=== PATIENT | male | born 1960 | race Caucasian/White ===

== ENCOUNTER → 2021-03-03 | Outpatient (CLI) | payer OTHER ==
--- NOTE | 2021-03-03 10:33 | RAD ---
EXAM: Left shoulder, 3 views; right foot, 2 views. HISTORY: Pain. Disability determination. COMPARISON: None. FINDINGS: Left shoulder: 3 views of the left shoulder obtained. There is severe glenohumeral joint space narrow ing with degenerative subchondral sclerosis, subchondral cyst formation, inferior marginal humeral he ad spurring and glenoid bony remodeling. The acromial clavicular joint is intact. Right foot: 2 views of the left foot are obtained. There is complete to near complete loss of the fir st metatarsal phalangeal joint with associated subchondral sclerosis, spurring and flattening of the articular aspect of the first metatarsal head and base of the first proximal phalanx. There is also s light flattening of the articular aspect of the second metatarsal head. There is a tiny plantar spur. IMPRESSION: 1. Severe left glenohumeral osteoarthritis with associated glenoid bony remodeling. 2. 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 3. Slight flattening of the right second metatarsal head. This may be projectional. There is no evide nce of sclerosis in this location. However, the possibility of cortical collapse due to osteonecrosis is not excluded. Electronically signed by: Ceci Diaz MD (03/03/2021 10:31 AM) [facility]
== END ==
LOC: RAD 09:45
PROVIDERS: ATTEND Family Medicine
DX: M19.012 Primary osteoarthritis, left shoulder (principal); M19.071 Primary osteoarthritis, right ankle and foot; M75.82 Other shoulder lesions, left shoulder; M25.812 Other specified joint disorders, left shoulder; M77.31 Calcaneal spur, right foot
CPT/HCPCS: 73030; 73620